=== PATIENT | male | born 1950 | race Caucasian/White ===

== ENCOUNTER → 2017-11-21 | Outpatient (CLI) | payer MEDICARE, OTHER ==
[~2017-11-21] MED LIST: ACYC-50 PO; ALBU2.5V36 IH; ALL300 PO; AMLO-99 PO; ASCO-201 PO; ASP325 PO; ASPI-715 PO; ATOR20TA22 PO; AZIT-1 PO; CEPH500C24 PO; CLAR-13 PO; CODE118S5 PO; CYAN20004; DAPA10TA PO; DM H PO; GEMF600T91 PO; HYDR-318 PO; HYDR-385 PO; IBRU140C PO; IOPAMIDOL 76% 100 ML INFUS BTL 100 ML ONE; LEV500 PO; LEVO-85 PO; LIRA0.6P3 SQ; LORA-1455 PO; LOSA-165 PO; METO-259 PO; METXR500 PO; MULT-820 PO; NS 0.9% 150 ML BAG 150 ML ONE; OMEG-11 PO; POTA20TA85 PO; POTA99TA6 PO; PRE50 PO; PYRI250T PO; [UNRECOGNIZED DRUG - CODE] PO; [UNRECOGNIZED DRUG - OTHER]
--- NOTE | 2017-11-21 11:18 | RADIOLOGY IMAGING REPORT ---
FACILITY: [facility] [place] PATIENT NAME: Jt Aparicio : 1950 MR: [id number] V: [id number] EXAM DATE: ORDERING PHYSICIAN: AGUSTÍN PAT TECHNOLOGIST: Location: [facility] - [place], [place] Patient: Jt Aparicio : 1950 Visit/Account:[id number] Date of Sevice: 11/21/2017 EXAMINATION: CT neck with IV contrast HISTORY: Follicular lymphoma TECHNIQUE: Spiral scan was obtained from the hard palate through the upper chest during injection o f nonionic iodinated intravenous contrast. Sagittal and coronal reformatted images are also submitte d. One of the following dose optimization techniques was utilized in the performance of this exam: Autom ated exposure control; adjustment of the mA and/or kV according to the patient's size; or use of an i terative reconstruction technique. Specific details can be referenced in the facility's radiology C T exam operational policy. CONTRAST: 100 mL of IV Isovue-370 COMPARISON: Soft tissue neck CT dated 07/16/2017. FINDINGS: Masses/lesions: Stable linear soft tissue density near the right posterior parotid gland suggesting prior surgery. No suspicious mass. Airway: Normal. Vessels: Negative. Musculoskeletal / Body wall: Multilevel degenerative disc disease and facet hypertrophy in the cervic al spine with mild convex leftward curvature of the cervicothoracic junction and grade 1 anterior lis thesis of C6 over C7. No aggressive osseous lesions. Lymph node assessment: No enlarged or pathologic-appearing lymph nodes in the neck. Visualized orbits / brain / paranasal sinuses: Leftward nasal septal deviation. Meli bullosa of the bilateral middle turbinates. Stable partial opacification of the left sphenoid sinus. Upper chest: Negative. IMPRESSION: 1. Stable linear soft tissue density near the posterior right parotid gland suggesting prior surgery in this location. 2. Otherwise no suspicious mass or lymphadenopathy in the neck. 3. Multilevel degenerative disc disease and facet hypertrophy in the cervical spine with mild convex leftward curvature at the cervicothoracic junction and grade 1 anterior listhesis of C7 over T1. Report Dictated By: Juan Manuel Leger MD at 11/21/2017 11:07 AM Report E-Signed By: Juan Manuel Leger MD at 11/21/2017 11:14 AM WSN:[email or web address]
--- NOTE | 2017-11-21 13:36 | RADIOLOGY IMAGING REPORT ---
FACILITY: [facility] PATIENT NAME: Jt Aparicio : 1950 MR: [id number] V: [id number] EXAM DATE: ORDERING PHYSICIAN: AGUSTÍN PAT TECHNOLOGIST: Location: [facility] Patient: Jt Aparicio : 1950 Visit/Account:[id number] Date of Sevice: 11/21/2017 CT chest with IV contrast CT abdomen with IV contrast CT pelvis with IV contrast History: Non-Hodgkin's lymphoma COMPARISON STUDIES: CT chest abdomen and pelvis 07/16/2017. TECHNIQUE: Axial CT images were obtained through the chest, abdomen and pelvis following the admini stration of nonionic iodinated IV contrast. Reformatted coronal and sagittal images were also obtaine d. Contrast used: Isovue 370, 75 ml One of the following dose optimization techniques was utilized in the performance of this exam: Autom ated exposure control; adjustment of the mA and/or kV according to the patient's size; or use of an i terative reconstruction technique. Specific details can be referenced in the facility's radiology C T exam operational policy. FINDINGS: CT Chest- Lower neck: Negative Lungs and pleura: Negative Mediastinum and sarika: Normal Heart, aorta, and great vessels: Negative Bones: Negative Chest wall: Negative Chest lymph node assessment: Negative CT Abdomen and Pelvis- Liver: Diffusely fatty Spleen: Spleen measures 11 x 5 x 13 cm, unchanged. Gallbladder and bile ducts: Gallbladder is present. Bile ducts are normal caliber. Pancreas: negative Adrenal glands: Bilateral multifocal adrenal nodules are unchanged. Kidneys: Bilateral renal cysts are unchanged. Pelvic structures: Large prostate gland produces an inferior impression upon the bladder. The pro state gland measures 6 cm average diameter. Bladder is otherwise unremarkable. Bowel and mesenteries: Several descending and sigmoid colon diverticula are without acute inflammator y change. Ascites: None Vessels: negative Musculoskeletal: Moderate degenerative disc changes L2-3, L4-5 and L5-S1. Body wall: negative Abd/Pelvis lymph node assessment: negative IMPRESSION: 1. Spleen size is unchanged. 2. No evidence of recurrent lymphoma. 3. Large prostate gland producing mass effect upon the bladder. Report Dictated By: Jennifer Oates MD at 11/21/2017 12:43 PM Report E-Signed By: Jennifer Oates MD at 11/21/2017 1:33 PM WSN:[email or web address]
== END ==
LOC: CT 08:20
PROVIDERS: ATTEND Internal Medicine
DX: K76.0 Fatty (change of) liver, not elsewhere classified (principal); N28.1 Cyst of kidney, acquired; N40.0 Benign prostatic hyperplasia without lower urinary tract symptoms; K57.30 Diverticulosis of large intestine without perforation or abscess without bleeding
CPT/HCPCS: 70491; 71260; 74177; Q9967

== ENCOUNTER 2017-11-24 08:23 | Outpatient (RCR) | payer MEDICARE, OTHER ==
[2017-09-08 08:44] VITALS: BP 120/82
--- NOTE | 2017-09-11 17:20 | ONCOLOGY FOLLOW UP NOTE ---
CHIEF COMPLAINT/REASON FOR VISIT Mr. 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 HISTORY OF PRESENT ILLNESS Luca returns. Please see his oncology history below. He continues to do extremely well. He has some fatigue for about two days after Rituxan, but overall this is mild and very tolerable. No new concerning lumps or bumps or skin findings concerning for melanoma. We did not find the primary. It has been nearly a year since the neck dissection with no relapse. I am hopeful that he had a immune response to the cancer and is in complete remission. His most recent scans have been negative and he has his next scan scheduled for approximately three months from now. We plan to continue Rituxan indefinitely. No other concerns today. They are planning a trip in the new year. PAST MEDICAL HISTORY 1. Follicular lymphoma. 2. Hypertension. 3. Diabetes. 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 SOCIAL HISTORY with two adult children. He previously worked for the [employer] here in [place]. A 10-pack year history of smoking, quitting approximately forty years ago. No significant alcohol use. ONCOLOGIC HISTORY Diagnosed with stage IIIA follicular lymphoma in September 1996. Was followed closely until he required six rounds of CVP in 1998. In 2009, he had recurrence and was treated with fludarabine and rituximab, but that was switched to Treanda and rituximab due to intolerance. His bendamustine was discontinued due to pancytopenia and his Rituxan was continued. He had a complete response when treatment was stopped in 2009. He had a second recurrence in July 2013 and was treated with ibrutinib and Rituxan. He did not tolerate the ibrutinib well and then continued maintenance Rituxan for two years. The patient developed metastatic melanoma, unknown primary, in the right neck in September 2016, resected. . PET CT showed no evidence of primary or distant disease. Discussed clinical trial as well as consideration of standard adjuvant ipilimumab as well as additional surgery with lymph node dissection. After discussion, we plan for close active surveillance in a post adjuvant therapy. We will continue the Rituxan. REVIEW OF SYSTEMS CONSTITUTIONAL: No fevers, chills or weight change. HEENT: No headache or vision changes. Recovered extremely well from surgery. LYMPHATIC: No appreciable cervical, supraclavicular or axillary adenopathy. CARDIOVASCULAR: No chest pain, dyspnea on exertion or edema. RESPIRATORY: No shortness of breath, wheeze or cough. GASTROINTESTINAL: No nausea or vomiting. GENITOURINARY: No dysuria or hematuria. MUSCULOSKELETAL: No weakness or joint pain. PSYCHIATRIC: No anxiety or depression. ENDOCRINE: No heat or cold intolerance. SKIN: Multiple seborrheic keratosis, but no abnormal lesions, no concerning lumps or bumps, irregular moles today. PHYSICAL EXAMINATION VITAL SIGNS: Blood pressure 120/82, pulse 73, respiratory rate 16, temperature 97.3 Fahrenheit, oxygen saturation 91% on room air. Weight 115.1 kg. GENERAL: In stable condition, resting comfortably in the chair. HEENT: Normocephalic, atraumatic. CARDIOVASCULAR: Regular rate and rhythm. LUNGS: Clear. ABDOMEN: Soft, nontender, nondistended. No organomegaly. SKIN: No concerning lesions. He does have multiple seborrheic keratoses. LYMPHATIC: No appreciable cervical, supraclavicular or axillary adenopathy. The remainder of the physical exam is otherwise unremarkable. IMPRESSION AND PLAN Mr. Aparicio is a very pleasant 67-year-old gentleman with the followin. Indolent follicular lymphoma, stage IV, currently in remission on indefinite Rituxan maintenance due to a lack of alternative should he relapse. 2. Malignant melanoma, unclear primary with a positive lymph node in the right neck, BRAF negative. His imaging has showed no distant disease. It has been one year since his resection and diagnosis. He considered an adjuvant therapy clinical trial, but he chose active surveillance. No evidence of disease at this time. We will get a CT scan of the neck, chest, abdomen and pelvis in approximately three to four months. I answered all of his questions today. Billing: Return visit level 4. Total time 30 minutes, counseling time 25. MTDD
[2017-09-16 08:15] VITALS: BP 124/79
[2017-09-16] MEDS: diphenhydrAMINE 25 MG CAP PO PRN (09:37)
[2017-09-16] MEDS: NS(*) 0.9% 100 ML BAG 100 ML IVPB PRN (09:37)
[2017-09-16] MEDS: ACETAMINOPHEN 325 MG TAB PO PRN (09:37)
[2017-09-16] MEDS: LIDOCAINE/SOD BICARB 8.4% SYR ID PRN (09:38)
[2017-11-21 09:13] VITALS: BP 130/96
[2017-11-21] MEDS: LIDOCAINE/SOD BICARB 8.4% SYR ID PRN (09:24)
[2017-11-21 09:29] LABS: PLATELET COUNT, AUTOMATED 184 K/uL (150-450)
[~2017-11-24] VITALS: Ht 182.9 cm; Wt 115.7 kg
[~2017-11-24 08:23] MED LIST changes: +DEXTROSE 5%(*) 100 ML BAG 100 ML IVPB PRN; -IOPAMIDOL 76% 100 ML INFUS BTL 100 ML ONE; -NS 0.9% 150 ML BAG 150 ML ONE; +riTUXimab 500 MG/50 ML SDV 900 MG in NS(*) 0.9% 1000 ML BAG 810 ML IV ONE
[2017-11-24 08:38] VITALS: BP 138/96
[2017-11-24] MEDS: diphenhydrAMINE 25 MG CAP PO PRN (08:57)
[2017-11-24] MEDS: ACETAMINOPHEN 325 MG TAB PO PRN (08:57)
[2017-11-24] MEDS: NS(*) 0.9% 100 ML BAG 100 ML IVPB PRN (09:00)
[2017-11-24] MEDS: LIDOCAINE/SOD BICARB 8.4% SYR ID PRN (09:00)
[2017-11-24] MEDS ORDERED: riTUXimab 500 MG/50 ML SDV 900 MG in NS(*) 0.9% 1000 ML BAG 810 ML IV ONE (09:05)
--- NOTE | 2017-11-24 09:42 | ONC Progress Note - NP.Halsey ---
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 Patient has a history of locally advanced melanoma of unclear primary with the right neck BRAF Negative lymph node that was fully resected and without recurrence. Patient has had no recent evidence of resection. Recent CT of the neck was reviewed with patient today. There is no evidence of recurrent disease or lymphadenopathy He continues on Rituxan indefinitely. He shares today that he recently followed with the ENT for ear drainage. He is currently on antibiotic therapy and feels that his symptoms are slowly improving. Patient has started wearing a When he is out in the wind to prevent ear pain. No concerns today other than generalized fatigue that is experienced after his infusion for a few days. Patient recently traveled over 4000 miles to [place] and back in his motor home. Problem List (1) Lymphoma (2) Melanoma of right side of neck (3) Follicular non-Hodgkin's lymphoma (4) Neuropathy due to chemotherapeutic drug (5) Melanoma of neck Oncology History Patient was initially diagnosed with stage IIIa follicular small cleaved B-cell non-Hodgkin's lymphoma of the mediastinum and abdomen in September 1996. Patient then had recurrent follicular lymphoma in October 2009, he had recurrence and was treated with fludarabine and rituximab, but that was switched to Treanda and rituximab due to intolerance. His bendamustine was discontinued due to pancytopenia and his Rituxan was continued. He had a complete response when treatment was stopped in 2009. He had a second recurrence in July 2013 and was treated with ibrutinib and Rituxan. He did not tolerate the ibrutinib well and then continued maintenance Rituxan indefinitely. The patient developed metastatic melanoma, unknown primary, in the right neck in September 2016, resected. Melanoma site measured 1.7 cm extra capsular extension is not definitely identified and margins of the excision were negative. This was negative for BE Raff mutation. PET CT showed no evidence of primary or distant disease. Discussed clinical trial as well as consideration of standard adjuvant ipilimumab as well as additional surgery with lymph node dissection. After discussion, patient has been monitored closely with active surveillance in a post surgical setting. Psychosocial History Smoking History: Yes (1PPD X 5 YEARS) Smoking Status: Former Smoker Exposure to Second Hand Smoke?: No Medications and Allergies Active Scripts Dapagliflozin Propanediol (Farxiga) 10 Mg Tablet, 10 MG PO DAILY, #30 TAB Prov:MARTIN MUÑOZ LUDLOW MACHINE OPERATOR-BC, ONC 01/16/16 Reported Medications Liraglutide (VICTOZA 2-PHILLIP) 0.6 Mg/0.1 Ml Pen.injctr, 1.2 MG SQ DAILY 10/15/16 Potassium Chloride (KLOR-CON M20) 20 Meq Tab.er.prt, 20 MEQ PO QDAY 05/20/16 Atorvastatin Calcium (LIPITOR) 20 Mg Tablet, 1 TAB PO QDAY, TAB 05/20/16 Amlodipine Besylate (AMLODIPINE BESYLATE) 10 Mg Tablet, 1 TAB PO QDAY, TAB TAKE ONE TABLET BY MOUTH EVERY DAY 09/20/13 Pregabalin (Lyrica) 50 Mg Cap, 50 MG PO BID, 0 Refills 07/21/10 Aspirin (Aspirin) 81 Mg Tablet.dr, 81 MG PO DAILY, 0 Refills 07/21/10 Docosahexanoic Acid/Epa (Fish Oil 1,000 Mg Capsule) 1 Cap Capsule, 3 CAP PO DAILY, 0 Refills 07/21/10 Ascorbate Calcium (Vitamin C) 500 Mg Tablet, 500 MG PO DAILY, 0 Refills 07/21/10 Multivitamins (Multivitamin) 1 Tab Tablet, 1 TAB PO DAILY, 0 Refills 07/21/10 Vitamin E (Vitamin E) 400 Unit Tablet, 400 UNIT PO DAILY, 0 Refills 07/21/10 Metformin Hcl (Metformin Er) 500 Mg Tab.sr.24h, 1000 MG PO BID, 0 Refills 07/21/10 Losartan/Hydrochlorothiazide (Hyzaar 100/25 Tablet) 1 Tab Tablet, 1 TAB PO QDAY , 0 Refills 07/21/10 Gemfibrozil (Gemfibrozil) 600 Mg Tablet, 600 MG PO BID, 0 Refills 07/21/10 Metoprolol Succinate (Metoprolol Succinate) 50 Mg Tab.sr.24h, 50 MG PO BID, 0 Refills 07/21/10 Allergies: Coded Allergies: Penicillins (Verified Allergy, Intermediate, HIVES, 09/20/13) Review of System/Physical Exam Review of Systems All Systems Reviewed/Normal: Yes, Except as Noted HEENT: Other (recent ENT for ear drainage. Patient reports that ear canals are within normal limits. Patient is currently on antibiotic therapy.) Hematologic: Positive for Fatigue Neurologic: Numbness of Hands, Numbness of Feet (the main stable) Physical Exam Vital Signs Temperature: 98.0 Pulse: 74 BP Systolic: 138 BP Diastolic: 96 Respiratory Rate: 16 O2 SAT: 93 O2 Delivery: Room Air Height (inches) 72.00 Weight lb: 243 Weight oz: 4.0 Weight Kg (Wilber): 114.42 Pain: 0 ECOG Score: 0 General: Stable, Well Developed, Well Nourished, Not In Acute Distress HEENT: No Trauma, No Conjunctivitis, No Icterus, No Mucositis, No Oral Thrush, Other (your exam was deferred today due to recent ENT visit.) Neck: Supple Lungs: Clear to Auscultation Heart: Regular Rate, Regular Rhythm, No Gallops Abdomen: Soft and Nontender, No Hepatosplenomegaly, No Masses Lymphadenopathy: No Cervical, No Subclavicular, No Axillary Psychiatric: Mood appears normal, Affect appears normal Skin: No Skin Rashes, No Bruising, No Purpura Diagnostic Studies Diagnostic Studies Laboratory Laboratory Tests 11/21/17 09:25 Laboratory Tests 11/21/17 09:25: White Blood Count 3.2, Red Blood Count 5.10, Hemoglobin 16.1, Hematocrit 46.0, Mean Corpuscular Volume 90.2, Mean Corpuscular Hemoglobin 31.5, Mean Corpuscular Hemoglobin Concent 34.9, Red Cell Distribution Width 14.5, Platelet Count 184, Mean Platelet Volume 8.2, Neutrophils (%) (Auto) 65.4, Lymphocytes (% ) (Auto) 18.2, Monocytes (%) (Auto) 13.7, Eosinophils (%) (Auto) 1.9, Basophils (%) (Auto) 0.8, Nucleated RBC Relative Count (auto) 0.2, Neutrophils # (Auto) 2.1, Lymphocytes # (Auto) 0.6, Monocytes # (Auto) 0.4, Eosinophils # (Auto) 0.1 , Basophils # (Auto) 0.0, Nucleated RBC Absolute Count (auto) 0.01, Sodium Level 142, Potassium Level 3.7, Chloride Level 102, Carbon Dioxide Level 24, Blood Urea Nitrogen 22, Creatinine 1.00, Glomerular Filtration Rate Calc > 60.0 , Random Glucose 239, Uric Acid 6.1, Calcium Level 9.7, Total Bilirubin 0.7, Aspartate Amino Transf (AST/SGOT) 26, Alanine Aminotransferase (ALT/SGPT) 39, Alkaline Phosphatase 88, Lactate Dehydrogenase 424, Total Protein 7.5, Albumin 4.6 Radiology No suspicious mass. Airway: Normal. Vessels: Negative. Musculoskeletal / Body wall: Multilevel degenerative disc disease and facet hypertrophy in the cervical spine with mild convex leftward curvature of the cervicothoracic junction and grade 1 anterior listhesis of C6 over C7. No aggressive osseous lesions. Lymph node assessment: No enlarged or pathologic-appearing lymph nodes in the neck. Visualized orbits / brain / paranasal sinuses: Leftward nasal septal deviation. Meli bullosa of the bilateral middle turbinates. Stable partial opacification of the left sphenoid sinus. Upper chest: Negative. IMPRESSION: 1. Stable linear soft tissue density near the posterior right parotid gland suggesting prior surgery in this location. 2. Otherwise no suspicious mass or lymphadenopathy in the neck. 3. Multilevel degenerative disc disease and facet hypertrophy in the cervical spine with mild convex leftward curvature at the cervicothoracic junction and grade 1 anterior listhesis of C7 over T1. Report Dictated By: Juan Manuel Leger MD at 11/21/2017 11:[address] of the chest abdomen and pelvis IMPRESSION: 1. Spleen size is unchanged. 2. No evidence of recurrent lymphoma. 3. Large prostate gland producing mass effect upon the bladder. Report Dictated By: Jennifer Oates MD at 11/21/2017 12:43 PM Assessment and Plan Assessment & Plan Mr. Aparicio is a very pleasant 67-year-old gentleman with the followin. Indolent follicular lymphoma, stage IV, currently in remission on indefinite Rituxan maintenance due to a lack of alternative should he relapse. He has good toleration and no concerns today. He does experience some mild fatigue after each infusion 2. Malignant melanoma, unclear primary with a positive lymph node in the right neck, BRAF negative. His imaging has showed no distant disease. It has been one year since his resection and diagnosis. He considered an adjuvant therapy clinical trial, but he chose active surveillance. No evidence of disease at this time. CT of the neck, chest abdomen and pelvis with IV contrast was reviewed today. Spleen is unchanged, no evidence of recurrent lymphoma. Large prostate gland producing mass effect upon the bladder. CBC and CMP are essentially unremarkable. Patient continues to have elevated blood sugar level, BUN and creatinine level remains stable. Plan: Patient to return in 8 weeks for Rituxan infusion. Patient will follow with Dr. Macedo with next cycle. Patient will contact the clinic if he has questions or concerns prior his office visit. I personally spent a total of 30 minutes with more than 50% of the time spent [id number] with patient reviewing diagnostic studies. Copies to: ESTEBAN SIERRA NANCY J LUDLOW MACHINE OPERATOR-BC, ONC Nov 24, 2017 09:42
== END 2017-12-04 ==
LOC: ONC 08:23
PROVIDERS: ATTEND Internal Medicine
DX: C82.80 Other types of follicular lymphoma, unspecified site (principal); Z85.820 Personal history of malignant melanoma of skin; Z87.891 Personal history of nicotine dependence; R53.83 Other fatigue; Z79.899 Other long term (current) drug therapy
CPT/HCPCS: 83615; 84550; 85027; 96413; 96415; A9270; G0463; J7030; J7050; J9310; Q0163; 82040; 82247; 82310; 82374; 82435; 82565; 82947; 84075; 84132; 84155; 84295; 84450; 84460; 84520; 85025; 99212

== ENCOUNTER 2018-01-19 08:10 | Outpatient (RCR) | payer MEDICARE, OTHER ==
[~2018-01-19] VITALS: Ht 182.9 cm; Wt 114.5 kg
[~2018-01-19 08:10] MED LIST changes: +ALTEPLASE RECOMB 2 MG VIAL IVP PRN; +HEPARIN FLSH (PORT) 500 UN/5ML IVP PRN; +LIDOCAINE/SOD BICARB 8.4% SYR ID PRN; +NS(*) 0.9% 100 ML BAG 100 ML IVPB PRN; +NS(*) 0.9% 500 ML BAG 500 ML IV PRN; +WATER FOR INJ,STERILE 20 ML IVP PRN; -riTUXimab 500 MG/50 ML SDV 900 MG in NS(*) 0.9% 1000 ML BAG 810 ML IV ONE
[2018-01-19 08:44] VITALS: BP 125/88
[2018-01-19] MEDS ORDERED: INSU100V24 SQ (08:49)
[2018-01-19] MEDS ORDERED: ACETAMINOPHEN 325 MG TAB PO PRN (09:40)
[2018-01-19] MEDS ORDERED: diphenhydrAMINE 25 MG CAP PO PRN (09:40)
[2018-01-19] MEDS ORDERED: riTUXimab 500 MG/50 ML SDV 900 MG in NS(*) 0.9% 1000 ML BAG 810 ML IV ONE (10:00)
--- NOTE | 2018-01-20 17:30 | ONCOLOGY FOLLOW UP NOTE ---
EVENT DATE: January 19, 2018 CHIEF COMPLAINT/REASON FOR VISIT Mr. Aparicio is a pleasant 68-year-old gentleman with a history of stage IV follicular lymphoma on maintenance Rituxan, as well as a history of locally advanced melanoma of unclear primary with a right neck BRAF negative lymph node that was fully resected. No evidence of recurrence. HISTORY OF PRESENT ILLNESS Luca returns. Please see his oncology history below. He continues to do quite well. His biggest complaints today are ear wax, drainage in the right ear as well as slightly higher glucose measurements and a higher hemoglobin A1c recently. I do not believe this has any relation to his cancer. He had imaging approximately two months ago which showed no evidence of his melanoma, as well as control of his follicular lymphoma. We have never found the primary from the melanoma. He has seen ENT for the ear drainage, but no abnormalities were seen. He is able to dry up the secretions with eardrops without issue, nonbloody. No other new concerns today. No fevers, chills. PAST MEDICAL HISTORY 1. Follicular lymphoma. 2. Hypertension. 3. Diabetes. 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 SOCIAL HISTORY with two adult children. He previously worked for the [employer] here in [place]. A 10-pack year history of smoking, quitting approximately forty years ago. No significant alcohol use. ONCOLOGIC HISTORY Diagnosed with stage IIIA follicular lymphoma in September 1996. Was followed closely until he required six rounds of CVP in 1998. In 2009, he had recurrence and was treated with fludarabine and rituximab, but that was switched to Treanda and rituximab due to intolerance. His bendamustine was discontinued due to pancytopenia and his Rituxan was continued. He had a complete response when treatment was stopped in 2009. He had a second recurrence in July 2013 and was treated with ibrutinib and Rituxan. He did not tolerate the ibrutinib well and then continued maintenance Rituxan for two years. The patient developed metastatic melanoma, unknown primary, in the right neck in September 2016, resected. . PET CT showed no evidence of primary or distant disease. Discussed clinical trial as well as consideration of standard adjuvant ipilimumab as well as additional surgery with lymph node dissection. After discussion, we plan for close active surveillance in a post adjuvant therapy. We will continue the Rituxan. REVIEW OF SYSTEMS CONSTITUTIONAL: No fevers, chills, significant weight change. HEENT: No headache or vision changes. CARDIOVASCULAR: No chest pain, dyspnea on exertion or edema. RESPIRATORY: No shortness of breath, wheeze or cough. GASTROINTESTINAL: No nausea or vomiting, pale stools or other concerns. ENDOCRINE: No heat or cold intolerance. PSYCHIATRIC: No anxiety or depression. MUSCULOSKELETAL: No weakness, joint pain. He is working out more and has better posture. GENITOURINARY: No dysuria or hematuria. SKIN: Multiple seborrheic keratosis, but no other concerning lesions. The remainder of the 14-point review of systems is otherwise negative. PHYSICAL EXAMINATION VITAL SIGNS: Blood pressure 125/88, pulse 75, respiratory rate 16, temperature 98 Fahrenheit, oxygen saturation 90% on room air. Weight 114.5 kg. Pain 0/10, fatigue 3/10. GENERAL: In stable condition, resting comfortably in the chair. HEENT: Normocephalic, atraumatic. CARDIOVASCULAR: Regular rate and rhythm. LUNGS: Clear. ABDOMEN: Soft, nontender. LYMPHATIC: No appreciable cervical, supraclavicular or axillary adenopathy. EXTREMITIES: No clubbing, cyanosis or edema. The remainder of the physical exam is otherwise unremarkable. IMPRESSION AND PLAN Mr. Aparicio is a pleasant 68-year-old gentleman with the followin. Indolent follicular lymphoma, stage IV, currently in remission on indefinite Rituxan maintenance due to a lack of alternative therapy options should he relapse. 2. Malignant melanoma with an unclear primary with a positive lymph node in the right neck, BRAF negative. I do not believe currently that the ear drainage is related to the melanoma. His imaging has shown no evidence of disease. It has been over a year since the resection and diagnosis. We considered an adjuvant therapy clinical trial, but he chose active surveillance. We will get a CT neck, chest, abdomen and pelvis in the fall. I answered all of his questions today. Billing: Return visit level 4. Total time 30 minutes, counseling time 20. MTDD
== END 2018-04-16 ==
LOC: ONC 08:10
PROVIDERS: ATTEND Internal Medicine
DX: C82.80 Other types of follicular lymphoma, unspecified site (principal); C43.4 Malignant melanoma of scalp and neck; Z79.899 Other long term (current) drug therapy
CPT/HCPCS: 83615; 84550; 85027; 96361; 96413; 96415; A9270; J7030; J7040; J9310; Q0163; 82040; 82247; 82310; 82374; 82435; 82565; 82947; 84075; 84132; 84155; 84295; 84450; 84460; 84520

== ENCOUNTER 2018-07-13 09:13 | Outpatient (RCR) | payer MEDICARE, OTHER ==
[2018-04-21 08:35] VITALS: BP 142/96
[2018-04-21] MEDS: LIDOCAINE/SOD BICARB 8.4% SYR ID PRN (09:17)
[2018-04-21 13:01] VITALS: BP 126/85
[2018-07-06] MEDS: LIDOCAINE/SOD BICARB 8.4% SYR ID PRN (08:10)
[2018-07-06 09:44] LABS: PLATELET COUNT, AUTOMATED 206 K/uL (150-450)
--- NOTE | 2018-07-06 13:03 | RADIOLOGY IMAGING REPORT ---
FACILITY: [facility] PATIENT NAME: Jt Aparicio : 1950 MR: [id number] V: [id number] EXAM DATE: ORDERING PHYSICIAN: AGUSTÍN PAT TECHNOLOGIST: Location: [facility] [place] Patient: Jt Aparicio : 1950 Visit/Account:[id number] Date of Sevice: 07/06/2018 EXAMINATION: CT neck without IV contrast CT neck with IV contrast HISTORY: Lymphoma. TECHNIQUE: Axial CT of the neck without and with IV contrast. Sagittal and coronal reformats. One of the following dose optimization techniques was utilized in the performance of this exam: Autom ated exposure control; adjustment of the mA and/or kV according to the patient's size; or use of an i terative reconstruction technique. Specific details can be referenced in the facility's radiology C T exam operational policy. CONTRAST: 75 mL of IV Isovue-370 COMPARISON: Soft tissue neck CT dated 11/21/2017. FINDINGS: Masses/lesions: Stable linear soft tissue density along the posterior margin of the right parotid gl and suggesting prior surgery or trauma this location. No suspicious mass. Airway: Negative. Lymph nodes: No enlarged or pathologic-appearing lymph nodes in the neck. Vessels: Negative. Musculoskeletal / Body wall: Multilevel degenerative disc disease and facet hypertrophy in the cervic al spine with straightening of the normal lordosis and 4 mm of anterior listhesis of C7 over T1. Visualized orbits / brain / paranasal sinuses: Stable partial opacification of the left sphenoid sinu s. Leftward nasal septal deviation. Upper chest: Negative. IMPRESSION: No significant change compared with 11/21/2017. Stable linear soft tissue density along t he posterior margin of the right parotid gland suggesting prior surgery or trauma. No suspicious mas s or lymphadenopathy. Report Dictated By: Juan Manuel Leger MD at 07/06/2018 12:50 PM Report E-Signed By: Juan Manuel Leger MD at 07/06/2018 12:59 PM WSN:[id number]
--- NOTE | 2018-07-06 13:23 | RADIOLOGY IMAGING REPORT ---
[place]AC[place] [facility] [place] NAME: Jt Aparicio : 1950 MR: [id number] V: [id number] EXAM DATE: ORDERING PHYSICIAN: AGUSTÍN PAT TECHNOLOGIST: [place] [facility] [place]t Aparicio : 1950 Visit/Account:[id number] Date of Sevice: 07/06/2018 EXAMINATION: CT chest, abdomen and pelvis bowel and with contrast HISTORY: Lymphoma TECHNIQUE: CT was obtained through the chest, abdomen and pelvis without and with intravenous contr ast. Sagittal and coronal MPR reformatted images generated. mL isovue 370 was injected. One of the following dose optimization techniques was utilized in the performance of this exam: autom ated exposure control; adjustment of the mA and/or kV according to patient size; or use of iterative reconstruction technique. Specific details can be referenced in the facility's radiology CT exam ope rational policy. COMPARISON: November 21, 2017, May 07, 2016 FINDINGS: Chest: Lower neck: Normal. Heart /pericardium/aorta/great vessels: Mild coronary artery calcification. Mediastinum: Normal. Lymph node assessment: Normal. Pleura: Normal. Lungs: 4 mm unchanged nodule along the right minor fissure, axial image 55. Chest wall: Normal. Musculoskeletal: No osseous destruction or metastatic disease. Abdomen/pelvis: Spleen: Normal. Adrenal glands: Multiple unchanged bilateral adrenal gland nodules. Pancreas: Normal. Kidneys: Multiple bilateral renal cysts. Gallbladder: Normal. Liver: Normal. Vessels: Normal for age. Lymph node assessment: Normal. Bowel including small bowel, colon and appendix: Normal stomach, normal small bowel, colonic divertic ulosis, otherwise normal. Peritoneum / retroperitoneum / mesentery: Normal. Pelvic structures: Normal bladder. Unchanged prostate gland enlargement measures 7.5 cm craniocau dad. Normal rectum. No pelvic fluid or adenopathy. Body wall: Normal. Musculoskeletal: No osseous destruction or metastatic disease identified. L4-5 and L5-S1 facet arthr opathy noted. Multilevel degenerative disc disease. IMPRESSION: 1. No evidence of disease recurrence. 2. No enlarged or suspicious appearing lymph nodes in the chest, abdomen or pelvis. 3. Stable benign 4 mm nodule pulmonary nodule along the right minor fissure. Otherwise clear lungs. 4. Colonic diverticulosis. 5. Unchanged prostate gland enlargement measuring 7.5 cm craniocaudad. Report Dictated By: Young Arreaga MD at 07/06/2018 1:00 PM Report E-Signed By: Young Arreaga MD at 07/06/2018 1:18 PM WSN:[id number]
[~2018-07-13] VITALS: Ht 182.9 cm; Wt 119.3 kg
[~2018-07-13 09:13] MED LIST changes: +ACETAMINOPHEN 325 MG TAB PO PRN; -ALTEPLASE RECOMB 2 MG VIAL IVP PRN; +AMLO-113 PO; -AMLO-99 PO; -HEPARIN FLSH (PORT) 500 UN/5ML IVP PRN; +INSU100V24 SQ; +IOPAMIDOL 76% 75 ML INFUS BTL 75 ML ONE; -LIDOCAINE/SOD BICARB 8.4% SYR ID PRN; -NS(*) 0.9% 500 ML BAG 500 ML IV PRN; -WATER FOR INJ,STERILE 20 ML IVP PRN; +diphenhydrAMINE 25 MG CAP PO PRN; +riTUXimab 500 MG/50 ML SDV 900 MG in NS(*) 0.9% 1000 ML BAG 810 ML IV ONE
[2018-07-13 09:23] VITALS: BP 142/83
[2018-07-13] MEDS ORDERED: INSU300I3 INJ (09:27)
[2018-07-13] MEDS ORDERED: INFLUENZA VIRUS VAC 0.5ML SYR IM ONLY ONE (10:00)
--- NOTE | 2018-07-14 14:16 | [facility] ONCOLOGY NOTE ---
EVENT DATE: July 13, 2018 CHIEF COMPLAINT/REASON FOR VISIT Mr. 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 No evidence of recurrence. HISTORY OF PRESENT ILLNESS Luca returns. Please see his oncology history below for more details. He continues to do extremely well. His imaging studies are reviewed with him and his today and they are excellent. No evidence of disease. I would like to get imaging annually given his two cancers including a melanoma of unclear primary in the right neck. His lymph node exam is still negative. He did have some borderline lymph nodes that were present for about two weeks but then they resolved. Imaging shows nothing. I think these were likely reactive earlier this fall. No fever, chills or signs of infection. No concerning lumps bumps. His weight is stable. He is on insulin at a higher dose now. No other new concerns today. PAST MEDICAL HISTORY 1. Follicular lymphoma. 2. Hypertension. 3. Diabetes. 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 SOCIAL HISTORY with two adult children. 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 A 10-pack year history of smoking, quitting approximately forty years ago. No significant alcohol use. ONCOLOGIC HISTORY Diagnosed with stage IIIA follicular lymphoma in September 1996. Was followed closely until he required six rounds of CVP in 1998. In 2009, he had recurrence and was treated with fludarabine and rituximab, but that was switched to Treanda and rituximab due to intolerance. His bendamustine was discontinued due to pancytopenia and his Rituxan was continued. He had a complete response when treatment was stopped in 2009. He had a second recurrence in July 2013 and was treated with ibrutinib and Rituxan. He did not tolerate the ibrutinib well and then continued maintenance Rituxan for two years. The patient developed metastatic melanoma, unknown primary, in the right neck in September 2016, resected. . PET CT showed no evidence of primary or distant disease. Discussed clinical trial as well as consideration of standard adjuvant ipilimumab as well as additional surgery with lymph node dissection. After discussion, we plan for close active surveillance in a post adjuvant therapy. We will continue the Rituxan. REVIEW OF SYSTEMS CONSTITUTIONAL: No fevers, chills. LYMPHATIC: No concerning lumps or bumps currently. He did have some intermittent lymph nodes for a short period of time earlier this fall. HEENT: No headache or vision changes. CARDIOVASCULAR: No chest pain, dyspnea on exertion or edema. RESPIRATORY: No shortness of breath, wheeze or cough. GASTROINTESTINAL: No nausea or vomiting. GENITOURINARY: No dysuria or hematuria. MUSCULOSKELETAL: No weakness or joint pain. PSYCHIATRIC: No anxiety or depression. ENDOCRINE: No heat or cold intolerance. SKIN: No concerning rashes or lesions currently. He has some seborrheic keratoses as well as possibly one actinic keratosis but sees dermatology later this week for his semi-annual exam. No other concerns today and the remainder of the 14-point review of systems is otherwise negative. PHYSICAL EXAMINATION VITAL SIGNS: Blood pressure 142/83, pulse 84, respiratory rate 16, temperature 97.5 Fahrenheit, oxygen saturation 93% on room air. Weight 119.3 kg. Pain 0/10, fatigue 0/10. GENERAL: Stable condition, resting comfortably in the chair. LYMPHATIC: No appreciable cervical, supraclavicular or axillary adenopathy. HEENT: Normocephalic, atraumatic. No abnormalities seen. SKIN: No concerning lesions. He does have multiple seborrheic keratoses. He potentially does have one actinic keratosis on the crown of his head and sees dermatology tomorrow. CARDIOVASCULAR: Regular rate and rhythm. LUNGS: Clear. ABDOMEN: Soft, obese, nontender. EXTREMITIES: No clubbing, cyanosis or edema. The remainder of the physical exam is otherwise unremarkable. IMPRESSION AND PLAN Mr. Aparicio is a very pleasant 68-year-old gentleman with the followin. Indolent follicular lymphoma, stage IV, currently in remission on Rituxan maintenance due to a lack of alternative therapy options should he relapse. He does have excellent control of disease and we could use Gazyva and chlorambucil. As such, I think we should finish a third year of maintenance and then stop. 2. Malignant melanoma with an unclear primary with a positive lymph node in the neck, BRAF negative. No imaging concerns for relapse disease. It has been nearly two years since its resection. We considered an adjuvant clinical trial but he chose active surveillance. We would like to get imaging annually with a CT neck, chest, abdomen and pelvis. I answered all of his questions today. Billing: Return visit level 4. Total time 30 minutes, counseling time 20. MTDD
[2018-07-21] MEDS ORDERED: CHOL10005 PO (08:35)
== END 2018-07-19 ==
LOC: ONC 09:13
PROVIDERS: ATTEND Internal Medicine
DX: C82.80 Other types of follicular lymphoma, unspecified site (principal); R91.1 Solitary pulmonary nodule; N40.0 Benign prostatic hyperplasia without lower urinary tract symptoms; N28.1 Cyst of kidney, acquired; E11.9 Type 2 diabetes mellitus without complications; Z23 Encounter for immunization; K57.30 Diverticulosis of large intestine without perforation or abscess without bleeding; J34.2 Deviated nasal septum; Z85.820 Personal history of malignant melanoma of skin
CPT/HCPCS: 36415; 70492; 71270; 74178; 83615; 84550; 85025; 85027; 90471; 96413; 96415; A9270; G0463; J7030; J7050; J9310; Q0163; Q2037; Q9967; 82040; 82247; 82310; 82374; 82435; 82565; 82947; 84075; 84132; 84155; 84295; 84450; 84460; 84520; 90674; 99212

== ENCOUNTER 2018-09-15 08:29 | Outpatient (RCR) | payer MEDICARE, OTHER ==
[2018-07-21 08:18] VITALS: BP 140/94
[2018-07-21] MEDS: LIDOCAINE/SOD BICARB 8.4% SYR ID PRN (08:40)
[2018-07-21] MEDS: NS(*) 0.9% 500 ML BAG 500 ML IV PRN (08:52)
[2018-07-21] MEDS: diphenhydrAMINE 25 MG CAP PO PRN (08:59)
[2018-07-21] MEDS: ACETAMINOPHEN 325 MG TAB PO PRN (08:59)
[~2018-09-15] VITALS: Ht 182.9 cm; Wt 118.5 kg
[~2018-09-15 08:29] MED LIST changes: -ACETAMINOPHEN 325 MG TAB PO PRN; -AMLO-113 PO; +AMLO-127 PO; +CHOL10005 PO; +INSU300I3 INJ; -IOPAMIDOL 76% 75 ML INFUS BTL 75 ML ONE; -diphenhydrAMINE 25 MG CAP PO PRN
[2018-09-15 08:40] VITALS: BP 143/86
[2018-09-15] MEDS: NS(*) 0.9% 500 ML BAG 500 ML IV PRN (08:55)
[2018-09-15] MEDS: diphenhydrAMINE 25 MG CAP PO PRN (08:55)
[2018-09-15] MEDS: LIDOCAINE/SOD BICARB 8.4% SYR ID PRN (08:55)
[2018-09-15] MEDS: ACETAMINOPHEN 325 MG TAB PO PRN (08:56)
[2018-09-15] MEDS ORDERED: riTUXimab 500 MG/50 ML SDV 900 MG in NS(*) 0.9% 1000 ML BAG 810 ML IV ONE (09:30)
--- NOTE | 2018-09-16 02:16 | ONCOLOGY FOLLOW UP NOTE ---
EVENT DATE: September 15, 2018 CHIEF COMPLAINT Followup for stage IV indolent follicular lymphoma and malignant melanoma. HISTORY OF PRESENT ILLNESS Patient is a 68-year-old male who was seen today in followup. He will receive Rituxan today, which he has been tolerating well. He describes some fatigue and "feeling grumpy" the day after his treatment, but this quickly resolves. He has ongoing peripheral neuropathy, more in his feet than his hands, likely related to previous chemotherapy. He is careful when ambulating, but otherwise this does not interfere with his activities of daily living. Most recent CT of the chest, abdomen, pelvis, and neck in July 2018 was negative for recurrent disease. He and his plan to go to [place] and [place] in October and November, and he understands that his Rituxan treatment will continue through the fall. ONCOLOGY HISTORY Diagnosed with stage IIIA follicular lymphoma in September 1996. Was followed closely until he required six rounds of CVP in 1998. In 2009, he had recurrence and was treated with fludarabine and rituximab, but that was switched to Treanda and rituximab due to intolerance. His bendamustine was discontinued due to pancytopenia and his Rituxan was continued. He had a complete response when treatment was stopped in 2009. He had a second recurrence in July 2013 and was treated with ibrutinib and Rituxan. He did not tolerate the ibrutinib well and has continued maintenance Rituxan for two years. The patient developed metastatic melanoma, unknown primary, in the right neck in September 2016, resected. PET/CT showed no evidence of primary or distant disease. Discussed clinical trial as well as consideration of standard adjuvant ipilimumab as well as additional surgery with lymph node dissection. After discussion, we plan for close active surveillance. PAST MEDICAL HISTORY 1. Follicular lymphoma, 1995. 2. Hypertension. 3. Diabetes. 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 5. Malignant melanoma, unknown primary, 2016. SOCIAL HISTORY Patient is with two adult children. 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 He has a [id number] history of smoking, quitting approximately 40 years ago. No significant alcohol use. FAMILY HISTORY Negative for malignancy. REVIEW OF SYSTEMS A 12-point review of systems is performed and is negative except as stated above. PHYSICAL EXAMINATION VITAL SIGNS: Weight 117.5 kg, BP 143/86, P 70, R 14, temp 97.3, O2 sat 91%. GENERAL: Patient is a well-developed, well-nourished male in no acute distress. HEAD: Normocephalic, atraumatic. EYES: Sclerae anicteric. MOUTH: Moist mucous membranes. No lesions. NECK: Supple. No palpable adenopathy or masses. LUNGS: Clear bilaterally. CARDIOVASCULAR: Heart rate regular, 70 per minute, without murmur, S3 or S4. EXTREMITIES: No edema. NEUROLOGIC: Nonfocal. SKIN: No visible lesions. LABORATORY CBC today reveals a WBC of 3.7, ANC of 2.4, hemoglobin 14.9, hematocrit 43.1, platelets 213,000. CMP is within normal limits except for a random glucose of 199. IMPRESSION AND PLAN The patient is a 68-year-old male with a history of stage IV indolent follicular lymphoma, currently in remission on maintenance Rituxan. Also with history of malignant melanoma with unknown primary, with positive lymph node in the neck, BRAF negative, with no evidence of recurrence. 1. Stage IV indolent follicular lymphoma. Cycle #27 of maintenance Rituxan today. Per Dr. Mukherjee's last note, he will continue this through the fall of 2018. He is in agreement with this plan, as he is tolerating this well. He and his will be in [place] and [place] in October and November, but will schedule his next appointment accordingly. CT of the chest, abdomen and pelvis in July 2018 was negative for recurrence. 2. Malignant melanoma. No signs of disease recurrence. Most recent CT in July 2018 was negative. Plans are to repeat CT of the neck, chest, abdomen and pelvis in July 2019. 3. Type 2 diabetes. Patient states that glucoses are in the 160-180 range. He tries hard to manage his diet as best he can. 4. Peripheral neuropathy. Greater in his feet than his hands. He is careful when walking and describes being off balance at times, but has had no recent falls. 5. Leukopenia. Chronic. ANC today is 2.4. He has had no issues with recurrent infection. 6. Follow up with Dr. Mukherjee in two to three months for continued care, earlier if there is a problem. [facility] HOSPITALCornel
== END 2018-10-18 ==
LOC: ONC 08:29
PROVIDERS: ATTEND Internal Medicine
DX: Z51.11 Encounter for antineoplastic chemotherapy (principal); C82.80 Other types of follicular lymphoma, unspecified site; E11.9 Type 2 diabetes mellitus without complications; G60.9 Hereditary and idiopathic neuropathy, unspecified; D72.819 Decreased white blood cell count, unspecified; Z85.820 Personal history of malignant melanoma of skin
CPT/HCPCS: 83615; 84550; 85027; 96413; 96415; A9270; J7030; J7040; J9310; Q0163; 82040; 82247; 82310; 82374; 82435; 82565; 82947; 84075; 84132; 84155; 84295; 84450; 84460; 84520

== ENCOUNTER 2019-02-17 09:00 | Outpatient (RCR) | payer MEDICARE, OTHER ==
[2018-12-22 08:37] VITALS: BP 154/93
[2018-12-28 08:30] VITALS: BP 157/91
--- NOTE | 2018-12-29 07:41 | [facility] ONCOLOGY NOTE ---
EVENT DATE: December 29, 2018 CHIEF COMPLAINT/REASON FOR VISIT Mr. Aparicio is a very pleasant 68-year old gentleman with a history of follicular lymphoma stage 4 as well as malignant melanoma. HISTORY OF PRESENT ILLNESS Mr. Aparicio returns. He has received Rituxan maintenance for 2-1/2 years. See his oncology history below for more details. He is having more and more symptoms with Rituxan, more fatigue and "feeling grumpy and unwell" for several days after treatment. Previously, this was simply four a day and tolerable. He thinks he may be getting sicker slightly more often but has not required a hospitalization. He has ongoing peripheral neuropathy more in his feet and hands, likely due to prior chemotherapy but also related to suboptimally controlled diabetes. I do not believe this is related to the Rituxan, although he thinks this worsened in the last two or three years while on Rituxan. I am more concerned that this is related to diabetes still, though. We had an extensive discussion today about goals of care, future treatment options and his increased side effects with Rituxan recently. ONCOLOGY HISTORY Diagnosed with stage IIIA follicular lymphoma in September 1996. Was followed closely until he required six rounds of CVP in 1998. In 2009, he had recurrence and was treated with fludarabine and rituximab, but that was switched to Treanda and rituximab due to intolerance. His bendamustine was discontinued due to pancytopenia and his Rituxan was continued. He had a complete response when treatment was stopped in 2009. He had a second recurrence in July 2013 and was treated with ibrutinib and Rituxan. He did not tolerate the ibrutinib well and has continued maintenance Rituxan for two years. The patient developed metastatic melanoma, unknown primary, in the right neck in September 2016, resected. PET/CT showed no evidence of primary or distant disease. Discussed clinical trial as well as consideration of standard adjuvant ipilimumab as well as additional surgery with lymph node dissection. After discussion, we plan for close active surveillance. PAST MEDICAL HISTORY 1. Follicular lymphoma, 1995. 2. Hypertension. 3. Diabetes. 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 5. Malignant melanoma, unknown primary, 2016. SOCIAL HISTORY Patient is with two adult children. 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 He has a [id number] history of smoking, quitting approximately 40 years ago. No significant alcohol use. FAMILY HISTORY Negative for malignancy. REVIEW OF SYSTEMS CONSTITUTIONAL: No fevers, chills or weight change. HEENT: No headaches or vision changes. CARDIOVASCULAR: No chest pain, dyspnea on exertion or edema. RESPIRATORY: No shortness of breath, wheeze or cough. GI: No nausea, vomiting or diarrhea. : No dysuria or hematuria. MUSCULOSKELETAL; No weakness or joint pain. NEUROLOGIC: Positive peripheral neuropathy, particularly in the feet. There is some effect on his balance as well. HEMATOLOGIC: No bruising or bleeding. SKIN: No concerning rashes or lesions. He does see dermatology regularly as he has a history of melanoma. No new lesions of concern. PHYSICAL EXAMINATION VITAL SIGNS: Blood pressure 157/91, pulse 82, respiratory rate 16, temperature 96.7 Fahrenheit, oxygen saturation 91% on room air, weight 121.8 kg, which is up approximately 8 pounds compared to last gi time. GENERAL: Stable condition, resting comfortably in the chair. HEENT: Normocephalic atraumatic. LYMPHATIC: No appreciable cervical, supraclavicular or axillary adenopathy. CARDIOVASCULAR: Regular rate and rhythm. No murmur, rub or gallop appreciated today. LUNGS: Clear. ABDOMEN: Soft, nontender, nondistended, obese. EXTREMITIES: No clubbing, cyanosis or edema. SKIN: No concerning lesions with his history of melanoma. He will have a full dermatology visit coming up soon. Remainder of physical exam otherwise unremarkable. IMPRESSION/REPORT/PLAN Mr. Aparicio is a very pleasant 68-year old gentleman with the following. 1. Stage 4 indolent follicular lymphoma. He has had 28 cycles of maintenance Rituxan. He is having more side effects with this and more myelosuppression. I believe it is time to stop Rituxan and begin active surveillance. We had an extensive conversation about this today, weighing the pros and cons with this decision in detail. 2. Malignant melanoma. No sign of disease or recurrence. His most recent CT was negative. We will get annual scans given his history of melanoma and follicular lymphoma multiply relapsed. 3. Type 2 diabetes. 4. Peripheral neuropathy related to chemotherapy and diabetes. 5. Leukopenia, chronic. No issues with infection out of concern range but he is having more myelosuppression with Rituxan. Plan to follow him every two months to three months. We will scans annually. I answered all of his many questions today. Billing: Return visit level 5. Total time 45 minutes, counseling time 30 minutes. High-risk high complexity. RITA
[2019-02-10 08:59] VITALS: BP 178/83
[2019-02-10 09:02] LABS: PLATELET COUNT, AUTOMATED 198 K/uL (150-450)
[~2019-02-17] VITALS: Ht 182.4 cm; Wt 122.6 kg
[~2019-02-17 09:00] MED LIST changes: +ACETAMINOPHEN 325 MG TAB PO PRN; +LIDOCAINE/SOD BICARB 8.4% SYR ID PRN; +diphenhydrAMINE 25 MG CAP PO PRN
[2019-02-17 09:12] VITALS: BP 134/89
[2019-02-17] MEDS ORDERED: KETC15T TP (09:23)
[2019-02-17] MEDS ORDERED: CIPDEXPT EACH EAR (09:23)
[2019-02-17] MEDS ORDERED: HYDR453.8 TP (09:23)
[2019-02-17] MEDS ORDERED: NOVOLINRPT IJ (09:23)
--- NOTE | 2019-02-17 14:25 | ONCOLOGY FOLLOW UP NOTE ---
EVENT DATE: February 17, 2019 CHIEF COMPLAINT Mr. Aparicio is a very pleasant 69-year old gentleman with a history of follicular lymphoma stage 4 as well as malignant melanoma. HISTORY OF PRESENT ILLNESS Mr. Aparicio returns today for ongoing followup. He received Rituxan maintenance for 2-1/2 years. Please see oncology history below. Most recently, he had been reporting more and more symptoms related to Rituxan to include fatigue and "feeling grumpy and unwell" for several days after treatment. This was previously only noticeable for about a day and was more tolerable. Patient believed that he was getting sicker slightly more often, although did not require hospitalization. He has ongoing peripheral neuropathy, more in his feet and hands, likely due to prior chemotherapy, although this is also likely attributable to suboptimal control of his diabetes. We do not feel his neuropathy is related to Rituxan, although patient does believe this has worsened in the last two or three years while on Rituxan. He remains on Lyrica twice daily. He's had worsening of his diabetes and reports that one week ago he was started on NovoLog three times a day. He tells me that his blood sugar this morning was in the 160 range, although prior to initiating Novolog he typically ranged between low 200s to 250. At his last visit with Dr. Mukherjee, they discussed goals of care, future treatment options as well as his reported increased side effects. As a result, maintenance Rituxan was discontinued and currently he is on active surveillance. He denies any health changes since his last visit. He has not yet noticed any difference or improvement in his energy levels but believes that he still needs more time to see if this were to improve as he is barely coming up on two months from his last treatment and he was on every two month treatment. His neuropathy persists, is not better and is not worse. He denies any worrisome symptoms to include no fevers, chills or night sweats. He still has fatigue. He hasn't had any fever. His appetite is excellent. He believes that his balance is still off, which he attributes largely to Rituxan over the last couple of years. ONCOLOGY HISTORY Diagnosed with stage IIIA follicular lymphoma in September 1996. Was followed closely until he required six rounds of CVP in 1998. In 2009, he had recurrence and was treated with fludarabine and rituximab, but that was switched to Treanda and rituximab due to intolerance. His bendamustine was discontinued due to pancytopenia and his Rituxan was continued. He had a complete response when treatment was stopped in 2009. He had a second recurrence in July 2013 and was treated with ibrutinib and Rituxan. He did not tolerate the ibrutinib well and has continued maintenance Rituxan for two years. The patient developed metastatic melanoma, unknown primary, in the right neck in September 2016, resected. PET/CT showed no evidence of primary or distant disease. Discussed clinical trial as well as consideration of standard adjuvant ipilimumab as well as additional surgery with lymph node dissection. After discussion, we plan for close active surveillance. PAST MEDICAL HISTORY 1. Follicular lymphoma, 1995. 2. Hypertension. 3. Diabetes. 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 5. Malignant melanoma, unknown primary, 2015. FAMILY HISTORY Negative for malignancy. SOCIAL HISTORY Patient is with two adult children. He previously worked for the [employer] as well as the [employer] district. He has a [id number] history of smoking, quitting approximately 40 years ago. No significant alcohol use. MEDICATIONS 1. Amlodipine 10 mg 1 q.d. 2. Vitamin C 500 mg p.o. q.d. 3. Baby aspirin 81 mg p.o. q.d. 4. Atorvastatin 20 mg one p.o. q.d. 5. Vitamin D3 1000 units p.o. q.d. 6. Cipro/Dexamethasone 0.3%/0.1% otic suspension four drops each ear p.r.n. 7. Fish Oil 1000 mg, three capsules daily. 8. Gemfibrozil 600 mg p.o. b.i.d. 9. Hydrocortisone 2.5% topical p.r.n. 10. Insulin glargine 40 units subcutaneous daily. 11. Novolin R 5 units t.i.d. 12. NovoLog. 13. Ketoconazole. 14. Victoza 1.2 mg subcutaneous daily. 15. Losartan/Hydrochlorothiazide 100/25 p.o. q.d. 16. Metformin 500 mg tablets, 1000 mg p.o. b.i.d. 17. Metoprolol succinate 50 mg p.o. b.i.d. 18. Multivitamin one daily. 19. Potassium Chloride 20 mEq p.o. q.d. 20. Lyrica 75 mg one p.o. b.i.d./t.i.d. 21. Vitamin E 400 units daily. ALLERGIES Penicillin. REVIEW OF SYSTEMS CONSTITUTIONAL: Patient denies any recent fevers, chills or night sweats. No weight changes. He reports excellent appetite. HEENT: No headaches or vision changes. No mouth sores. No dysphagia or odynophagia. CARDIOVASCULAR: No chest pain. No syncope or presyncope. RESPIRATORY: No shortness of breath, wheeze, cough or pleuritic chest pain. No hemoptysis. GI: No abdominal pain, nausea, vomiting, constipation, diarrhea, bright red blood per rectum or melena. Appetite is excellent. : No dysuria or hematuria. MUSCULOSKELETAL: No focal areas of pain. NEUROLOGIC: Positive for peripheral neuropathy in hands and feet, more noticeable in the feet. There is some effect on his balance as well and he reports that his balance is simply "off". HEMATOLOGIC: No bruising or easy bleeding. SKIN: No rash. No generalized pruritus. No suspicious lumps or bumps. Patient follows up with dermatology regularly as he does have a history of melanoma. No new suspicious lesions. PSYCH: He denies any severe anxiety, severe depression, suicidal or homicidal ideation. ENDOCRINE: No heat or cold intolerance. He reports generalized fatigue, stable. The remainder of a 12-point review of systems is performed today and is otherwise negative. PHYSICAL EXAMINATION VITAL SIGNS: Weight 122.6 kg, T 96.1, P 80, R 16, BP 134/89, oxygen saturation 94% room air. GENERAL: This is a pleasant 69-year old gentleman who appears well-hydrated, well-nourished and is in no acute distress. HEAD: Normocephalic atraumatic. EYES: Sclerae anicteric. NECK: Supple. No lymphadenopathy. No JVD. CARDIOVASCULAR: Regular rate and rhythm. No ectopy. LUNGS: Clear to auscultation bilaterally. ABDOMEN: Soft, obese, nontender, nondistended. Bowel sounds positive x4. No organomegaly. LYMPHATICS: No cervical, supraclavicular or axillary adenopathy. EXTREMITIES: No clubbing, cyanosis or edema. NEURO: Patient is awake, alert, oriented x3. He does report neuropathy in both his hands and feet. PSYCH: Mood and affect are appropriate. DERM: No suspicious lesions on cursory examination. She does have a history of melanoma. No rash. No petechiae or purpura. MUSCULOSKELETAL: Gait and ambulation are largely unremarkable. LABORATORY CBC on February 10, 2019: WBC 2.8, ANC 1.6, hemoglobin 14.3, hematocrit 41.3%, platelets 198,000. CMP on February 10, 2019: Largely unremarkable with exception of elevated glucose at 244. Last glucose was 256 on December 22, 2018. LDH normal at 438. Calcium normal at 9.2, total bilirubin normal at 0.6, AST normal at 26, ALT normal at 31, alkaline phosphatase normal at 101. Total protein normal at 6.6 with albumin normal at 4.2. Immunoglobulin levels: IgG 462, low; previously 569, also low. IgA 91, normal. IgM 22, low; previously 27 on February 13, 2016. IMPRESSION AND PLAN Mr. Aparicio is a very pleasant 68-year old gentleman with the following. 1. Stage 4 indolent follicular lymphoma. He has had 28 cycles of maintenance Rituxan. After his last visit back in December 2018, he was reporting ongoing and increased side effects and also had more myelosuppression. We, therefore, discontinued maintenance Rituxan at that time. He is currently on active surveillance. 2. Malignant melanoma: No current sign of disease or recurrence. Most recent CT was negative. He will continue to follow up with dermatology. We plan to obtain annual scans given his history of melanoma as well as follicular lymphoma, multiply relapsed. Last images were obtained on July 06, 2018, with CT chest, abdomen and pelvis at that time. We will plan to repeat these in July of this year. 3. Type 2 diabetes: Managed per PCP. Recently started NovoLog approximately one week ago. Discussed importance of compliance. 4. Peripheral neuropathy, related to both chemotherapy and diabetes, although we believe this is more largely related to his diabetes. Again, discussed importance of compliance. 5. Leukopenia, chronic: Currently, has not had any issues with infection or fevers. He does have myelosuppression related to prior therapy. We will continue to monitor. We reviewed neutropenic precautions. 6. Patient will return to clinic in three months as scheduled, in early May, for ongoing followup/active surveillance. He will repeat labs one week prior to his visit. Plan to follow him every two months to three months. We will scans annually. I answered all of his many questions today. RITA
== END 2019-03-21 ==
LOC: ONC 09:00
PROVIDERS: ATTEND Internal Medicine
DX: Z51.11 Encounter for antineoplastic chemotherapy (principal); C82.80 Other types of follicular lymphoma, unspecified site; E11.9 Type 2 diabetes mellitus without complications; G62.9 Polyneuropathy, unspecified; D72.819 Decreased white blood cell count, unspecified
CPT/HCPCS: 36415; 82784; 83615; 84550; 85025; 85027; 96413; 96415; A9270; G0463; J7030; J7050; J9312; Q0163; 82040; 82247; 82310; 82374; 82435; 82565; 82947; 84075; 84132; 84155; 84295; 84450; 84460; 84520; 99212